=== PATIENT | female | born 1950 | race Caucasian/White ===

== ENCOUNTER 2018-07-06 13:48 | Outpatient (CLI) | payer MEDICARE ==
--- NOTE | 2018-07-06 15:26 | MMO ---
Bilateral MAMMO Bilat Screen [facility]. CLINICAL HISTORY: Patient is 67 years old and is seen for screening. The patient has no family history of breast cancer. The patient has no personal history of cancer. VIEWS: The views performed were: bilateral craniocaudal with tomosynthesis and bilateral mediolateral oblique with tomosynthesis. FILMS COMPARED: The present examination has been compared to prior imaging studies performed at [facility] on 05/05/2005, 05/24/2005 and 06/17/2015. MAMMOGRAM FINDINGS: There are scattered fibroglandular densities. There are no suspicious masses, suspicious calcifications, or new areas of architectural distortion. IMPRESSION: THERE IS NO MAMMOGRAPHIC EVIDENCE OF MALIGNANCY. A ROUTINE FOLLOW-UP MAMMOGRAM IN 1 YEAR IS RECOMMENDED. THE RESULTS OF THIS EXAM WERE SENT TO THE PATIENT. ACR BI-RADS Category 1 - Negative MAMMOGRAPHY NOTE: 1. A negative mammogram report should not delay a biopsy if a dominant of clinically suspicious mass is present. 2. Approximately 10% to 15% of breast cancers are not detected by mammography. 3. Adenosis and dense breasts may obscure an underlying neoplasm.
== END 2018-07-06 13:49 | disposition home or self-care (01) ==
LOC: BICMAMMO 13:48
PROVIDERS: ATTEND Family Medicine
DX: Z12.31 Encounter for screening mammogram for malignant neoplasm of breast (principal)
CPT/HCPCS: 77063; 77067

== ENCOUNTER 2018-09-22 07:33 | Outpatient (CLI) | payer MEDICARE ==
--- NOTE | 2018-09-22 09:05 | CT ---
CT ABDOMEN AND PELVIS WITH AND WITHOUT IV CONTRAST 09/22/2018 CLINICAL INFORMATION: Asymptomatic microscopic hematuria. Back pain. COMPARISON: None. Technique: Multiple contiguous axial CT images are obtained through the abdomen and pelvis with and without IV c ontrast. Coronal reformatted images are provided. FINDINGS: Lower Chest: Dependent bibasilar atelectasis. Vessels: Vascular calcifications in the abdominal aorta. Abdomen: Portal vein:Patent Gallbladder: Within normal limits for CT imaging. Liver: There are scattered subcentimeter low-density lesions within each lobe of the liver which are difficult to further characterize but likely reflective of hepatic cysts. Cystic metastatic lesions cannot be entirely excluded but are less favored.. Spleen: within normal limits. Pancreas: within normal limits. Adrenals: within normal limits. Kidneys: Subcentimeter too small to characterize hypodense lesions are seen in each kidney. There are bilateral parapelvic renal cysts present. No enhancing renal mass is identified. No renal or ureteral calculi are seen bilaterally, and there is no evidence of hydronephrosis. There is mild dist ortion of each renal collecting system due to the parapelvic renal cysts, but no definitive filling defect is seen within the renal collecting systems or ureters. Bowel: Small hiatal hernia is present. Loops of small bowel are normal in caliber. There is colonic d iverticulosis involving the sigmoid colon. Appendix: Not visualized. Peritoneum: No ascites or free air; no fluid collection. Mesentery and Retroperitoneum: No enlarged mesenteric or retroperitoneal lymph nodes. Abdominal Wall: within normal limits. Pelvis: Reproductive Organs: No pelvic masses. Pelvis within normal limits. Bladder: Partially distended but otherwise grossly within normal limits. Bones: There is pseudoarticulation of the right lateral mass of L5 with S1. Mild degenerative changes are seen at the lumbosacral junction. IMPRESSION: 1. No renal or ureteral calculi are seen bilaterally, and there is no hydronephrosis or enhancing janice al mass identified. 2. Subcentimeter too small to characterize hypodense lesions in each kidney likely reflective of smal l cysts. Bilateral parapelvic renal cysts are seen. 3. Subcentimeter too small to characterize hypodense lesions within each lobe of the liver statistica lly favored to represent small hepatic cysts. 4. Small hiatal hernia. 5. Colonic diverticulosis.
[2018-09-22] MEDS ORDERED: ISOVUE-370 76%-LOCM 1 ML ONE (11:42)
== END 2018-09-22 07:34 | disposition home or self-care (01) ==
LOC: BICCT 07:33
PROVIDERS: ATTEND Urology
DX: R31.21 Asymptomatic microscopic hematuria (principal); N28.89 Other specified disorders of kidney and ureter; K76.9 Liver disease, unspecified; K44.9 Diaphragmatic hernia without obstruction or gangrene; K57.30 Diverticulosis of large intestine without perforation or abscess without bleeding
CPT/HCPCS: 74178; 82565; Q9966

== ENCOUNTER 2019-01-09 05:59 | Day surgery (SDC) | payer MEDICARE ==
[2019-01-08 17:12] VITALS: BMI 24.0
[2019-01-08 18:16] LABS: Hemoglobin 12.8 g/dL (12.0-16.0); Mean Corpuscular HGB CONC 31.1 g/dL (32.0-36.0); Mean Corpuscular Hemoglobin 26.3 pg (27.0-31.0); Mean Corpuscular Volume 84.5 fL (78.0-98.0); Mean Platelet Volume 8.5 fL (7.4-10.4); Platelet Count 241 thou/uL (130-400); RBC Distribution Width 13.5 % (11.5-14.5); Red Blood Cell (RBC) Count 4.88 mill/uL (4.20-5.40); White Blood Cell (WBC) Count 6.2 thou/uL (4.8-10.8)
--- NOTE | 2019-01-09 01:13 | HP ---
ANTICIPATED DATE OF SURGERY: She is scheduled for surgery on January 09. HISTORY OF PRESENT ILLNESS: Ms. Brumfield is a 68-year-old white female, G11, P8, A3, who has had significant pelvic prolapse. She had symptoms of something bulging and falling out her vagina that has progressively worsened. She is originally seen for this back in July 2018 and was offered a pessary there due to concerns for time off due to a surgical approach. She declined and now she is desiring definitive surgical therapy. PAST MEDICAL HISTORY: Negative. PAST SURGICAL HISTORY: Negative. ALLERGIES: SHE HAS NO KNOWN DRUG ALLERGIES. FAMILY HISTORY: Significant for prostate cancer in her father at age 88, heart disease in her father, and hypertension. SOCIAL HISTORY: She is a nonsmoker. No excessive alcohol use. She is . OB HISTORY: She had eight spontaneous vaginal deliveries in the past. CURRENT MEDICATIONS: 1. Multivitamin. 2. Vitamin D3 of 2000 units daily. PHYSICAL EXAMINATION: VITAL SIGNS: Her blood pressure is 114/70, weight 144, height 5 feet 4 inches, BMI of 24.7, pulse 79 and regular, and respiratory rate 18. HEENT: Within normal limits. CHEST: Clear to auscultation. HEART: Regular rate and rhythm. S1 and S2 heart sounds. No murmurs, rubs, or gallops. ABDOMEN: Soft, nontender, nondistended with no palpable masses. PELVIS: Vulva and vagina had no lesions. She has significant procidentia with the cervix protruding past the vaginal introitus 3 cm. She also has concomitant cystocele that is grade 3 to 4 and rectocele, grade 3. ASSESSMENT: This is a 68-year-old white female, G11, P8, A3 with uterine procidentia/cystocele/rectocele. PLAN: Plan is to proceed with robotic total laparoscopic hysterectomy with bilateral salpingo-oophorectomy with uterosacral vaginal vault suspension, followed by anterior and posterior repair with Advantage Fit TVT with cystoscopy. Risks and benefits of the procedure have been discussed in detail. She is scheduled for surgery on 01/09/2019. Job ID: [id number]
[2019-01-09] MEDS ORDERED: Famotidine/PF 20 mg/2ml Vial ONE (06:06)
[2019-01-09] MEDS ORDERED: Gabapentin 300 MG CAP ONE (06:06)
[2019-01-09] MEDS ORDERED: CeleCOXIB 100 MG CAP ONE (06:06)
[2019-01-09] MEDS ORDERED: HYDROmorphone 2 MG/ML VIAL ONE (06:56)
[2019-01-09] MEDS ORDERED: Lidocaine 1% w/Epinephrine 1:100K 20 ML VIAL ONE (07:17)
[2019-01-09] MEDS ORDERED: Bupivacaine HCl 0.5%/Epinephrine 1:200,000/PF 30 ml Vial ONE (07:17)
[2019-01-09] MEDS ORDERED: SUGAMMADEX SODIUM 200 MG/2 ML VIAL ONE (09:48)
[2019-01-09] MEDS ORDERED: diphenhydrAMINE 25 MG CAP PO PRN (10:42)
[2019-01-09] MEDS ORDERED: Morphine 4 MG/ML VIAL SLOW IVP PRN (10:42)
[2019-01-09] MEDS ORDERED: Zolpidem Tartrate 5 MG TAB PO PRN (10:42)
[2019-01-09] MEDS ORDERED: Bisacodyl 10 MG SUPP PR PRN (10:42)
[2019-01-09] MEDS ORDERED: Promethazine HCl 25 MG/ML VIAL IM PRN (10:42)
[2019-01-09] MEDS ORDERED: Simethicone Chewable 80 MG TAB PO PRN (10:42)
[2019-01-09] MEDS ORDERED: traMADol HCl 50 MG TAB PO PRN ×2 (10:42)
[2019-01-09] MEDS ORDERED: Ondansetron PF 4 MG/2 ML Vial IVP PRN (10:42)
[2019-01-09] MEDS ORDERED: Dexamethasone 20 MG/5 ML VIAL ONE (10:50)
[2019-01-09] MEDS ORDERED: Rocuronium Bromide 10 MG/ML (10ML VIAL) ONE (10:50)
[2019-01-09] MEDS ORDERED: Lidocaine 1% PF 5 ML VIAL ONE (10:50)
[2019-01-09] MEDS ORDERED: Glycopyrrolate 0.2 MG/ML 5 ML SYRINGE ONE (10:50)
[2019-01-09] MEDS ORDERED: ePHEDrine/0.9% NaCl/PF SYRINGE 50 mg/10 ml ONE (10:50)
[2019-01-09] MEDS ORDERED: PROPOFOL 200 MG/20 ML VIAL ONE (10:50)
[2019-01-09] MEDS ORDERED: Ondansetron PF 4 MG/2 ML Vial ONE (10:50)
--- NOTE | 2019-01-09 14:32 | OP ---
DATE OF PROCEDURE: 01/09/2019 PREOPERATIVE DIAGNOSES: A 68-year-old white female G11, P8, A3 with uterine procidentia, grade 3 cystocele, grade 2 rectocele, and genuine stress incontinence. POSTOPERATIVE DIAGNOSES: A 68-year-old white female G11, P8, A3 with uterine procidentia, grade 3 cystocele, grade 2 rectocele, and genuine stress incontinence. PROCEDURES PERFORMED: 1. Robotic total laparoscopic hysterectomy and bilateral salpingo-oophorectomy. 2. Uterosacral vaginal vault suspension. 3. Anterior and posterior repair. 4. Advantage Fit TVT with cystoscopy. ASSISTANCE SURGEON: Riana Pena PA-C ANESTHESIA: General endotracheal. ESTIMATED BLOOD LOSS: 50 mL. COMPLICATIONS: None. COUNTS: Correct x2. ANTIBIOTICS: 2 g Ancef. PATHOLOGY: Uterus, cervix, bilateral fallopian tubes and ovaries. FINDINGS: 1. Normal-appearing postmenopausal uterus and fallopian tubes and ovaries with uterine procidentia with the cervix extending over 3 cm past the vaginal introitus. 2. Cystoscopy of bladder showed bladder to be watertight with no evidence of injury with trocar placement of the TVT device or previous insult. Bilateral ureteral orifices with efflux of urine noted postprocedure evaluation. DISPOSITION: Recovery room, stable. DESCRIPTION OF PROCEDURE: The patient previously received informed consent in regard to surgery. She was taken back to the operating room, where she received a general endotracheal anesthetic agent without complications. She was placed in the dorsal lithotomy position with use of Soren stirrups and prepped in usual fashion. The cervix was noted to be extending 3 cm past the vaginal introitus. It was grasped with a single-tooth tenaculum. It was sounded to 9 cm and a size 8 cm YAJAIRA uterine manipulator with a 3.5 cm cup was placed in usual fashion, placing the uterus within the vaginal vault. Carballo catheter had also been placed during this time. Attention was then turned to the abdomen for perspective trocar sites were infiltrated with 0.5% Marcaine with epinephrine. A 12 mm supraumbilical incision was made. Veress needle was then entered into the peritoneal cavity with the patient's pressure was noted to be less than 5 mm. Abdomen was insufflated the patient's pressure of 15 approximately 4.5 L of carbon dioxide gas. Veress needle was removed and a 12 mm trocar was placed. So, robotic laparoscope was introduced through the trocar sleeve confirming proper entry. The patient was in Trendelenburg position then and with additional 8 mm bilateral lower quadrant ports were placed along with the right upper quadrant state tested nursing assistant port. Robot was then docked in usual fashion and I then broke scrub and proceeded to carry out the procedure from the operative console while my assistants remained at the bedside. The uterus was elevated by my state tested nursing assistant into the abdomen and put on stretch, which enabled us to identify the [place] uterosacral ligaments. The courses of each ureters were also visualized, which were noted to be well lateral to the uterosacral ligaments. With the use of the monopolar scissors, then bipolar fenestrated cautery, the left uterosacral ligament was grasped approximately 4 cm more caudally from the insertion of the uterus. It was elevated, then underneath the peritoneum, underneath the uterosacral ligament was then opened and the area was dissected, creating a window for further usage for this suspension after the hysterectomy procedure. The retroperitoneum lateral to the uterosacral ligament was also opened and dissected a window, which freed the ureter more laterally from the uterosacral ligament. This was repeated in likewise fashion on the right uterosacral ligament. Then, I re-grasped the left fallopian tube. The left IP ligament was then cauterized and coagulated and transected and serial coagulation and transection of the broad ligament hugging close to uterine specimen was carried down to the left round ligament was reached. It was coagulated and transected. The anterior leaf of the broad ligament was entered and the anterior leaf of the vesical peritoneum and the reflection was incised in a layering technique dissecting the bladder safely past the cervical vaginal angle. The uterine vessels were skeletonized and they were coagulated in the internal cervical os region. This was repeated on the right side in similar fashion with the right IP ligament was coagulated and transected. Serial coagulation of broad ligament hugging close to the uterus was carried down to the right round ligament was reached. It was coagulated and transected. The anterior leaf of the broad ligament again was entered. The vesicouterine peritoneum was incised in layering technique. Again, dropping it safely, the bladder safely past the cervical vaginal margin. The vessels were continued to be skeletonized and coagulated the internal cervical os region. The bladder was distended at this time to confirm location and it was noted to be well past the cervical vaginal margin. The anterior colpotomy was then made with monopolar scissors. It was carried from 12 to 3 and 12 to 9 o'clock and completed from 6 to 9 and 6 to 3 o'clock. The specimen was delivered in the vagina. The monopolar scissors were exchanged with the Fredrick needle haulpak driver and then, I grasped the vaginal cuff. Any areas of oozing or bleeding were made hemostatic with bipolar fenestrated cautery. The vaginal cuff was then closed with a Stratafix suture starting the right angle, therein through to the left angle and then back towards the midline. The excess suture and needle were then removed by my state tested nursing assistant in the right upper quadrant port. #1 Ethibond sutures were then brought into the surgical field. We then checked the Ethibond suture and did several two throws through the vaginal cuff on the left vaginal angle and then towards the midline and then, lassoed this around the left uterosacral ligament. This was tied up while my state tested nursing assistant from below held the vaginal vault on stretch toward the cephalad. This helped plicated and then support the vaginal vault. This was again carried out again with 0 Ethibond suture on the right side to the right vaginal angle and the right middle portion of the vaginal cuff and then sutured and tied down to the right uterosacral ligament with clear previous window had been created. The excess suture and needle were then again removed through the right upper quadrant point. An additional suture was placed, 0 Ethibond through the midportion of the vaginal cuff anteriorly and back through posteriorly even then brought through the two uterus sacral ligaments were close to the vaginal cuff line plicating these together for additional support. Excess suture and needle were then removed. We then irrigated the pelvis and hemostasis on the pedicle sites were confirmed. Bilateral ureteral peristalsis were visualized and ureters appeared well lateral to the plicated portion of the uterosacral ligament vault suspension. The robot was then undocked. The trocar sites were removed. A deep stitch of 0 Vicryl was placed in the fascia of the umbilicus and a [id number] stitch fashion securing hemostasis and closure of the fascia. The remainder of the trocar sites were closed with 4-0 Monocryl subcuticular fashion and Dermabond. We then proceeded to carry out the vaginal portion of the procedures. The patient was placed in a more exaggerated dorsal lithotomy position. Carballo catheter was draining clear urine. A weighted speculum was placed in the vagina. The cystocele was noted and two Allis clamps were placed in the anterior vagina. Anterior portion of the vaginal mucosa was opened just over the midportion of the cystocele. The cystocele was reduced and the endopelvic fascia was then plicated with 2-0 Vicryl sutures in a deiauu-pu-frwqo stitch fashion. The mucosa of the anterior vagina of the cystocele was then closed with interrupted [id number] stitches securing hemostasis. We then carried out the TVT procedure, where the markings were made just above the symphysis pubis first in the midline, where the urethra was located and then, 2 cm lateral on the right and left side. These were marked. Hydrodissection with approximately 60 mL of sterile saline was placed with the needle in the suprapubic area. We then located the midportion of the urethra by palpating the Carballo bulb. Allis clamps superiorly and inferiorly to this was made after infiltration of this mucosa with 1% lidocaine with epinephrine. A 1.5 cm midline vertical incision of the vaginal mucosa of the mid urethra was made. The edges were grasped with Allis clamps. Metzenbaum scissors were utilized to tunnel submucosally in the junction of inferior pubic ramus and symphysis pubis to perforate into the space of Retzius bilaterally with the Metzenbaum scissors. The Advantage Fit TVT trocar was then assembled along with the mesh tape and the trocar was then placed in the dissected tunnel on the patient's left side. After the legs had been dropped in the proper position level to each envella. The Advantage Fit TVT trocar was then guided under the symphysis pubis and the handle was dropped towards the floor angling into the envella on the previously marked lateral suprapubic spot passing the trocar through the skin and then grasping the plastic portion of the mesh with a Lucy clamp. The trocar was backed out. The mesh was then placed on the right side in likewise fashion in the patient. The two plastic portions of the mesh were held stable with a Lucy clamp. At this time, the Carballo guidewire was taken out of the bladder, while I had been placed a centimeter at this time deviating and away from each trocar placement site. A 30-degree cystoscope was then placed through the bladder and the bladder was distended. There was no evidence of any trocar placement or mesh placement within the bladder. Bilateral ureteral orifices were visualized with efflux of the urine also noted. We then tightening the TVT tape over the mid urethra. My state tested nursing assistant pulled these up after the protective plastic covering had been clipped and removed. It was tightened up against the Cadet scissor. Once the appropriate tautness was confirmed, the mesh was trimmed at the skin line of the symphysis pubis filed on the side. The Cadet scissor was removed. The vaginal mucosa overlying the mid urethra and mesh was closed with interrupted vxwvqa-[id number] stitches of 0 Vicryl securing hemostasis. We recystoscoped the patient at this time with a 70-degree scope and again bilateral ureteral orifices were noted to be effluxing urine. Attention was then turned to the posterior repair, where the angle of the vagina and the introitus at the 4 and 9 o'clock position were grasped with Allis clamps. The posterior vaginal mucosa was infiltrated with 1% lidocaine with epinephrine. A vertical midline incision was made in the vaginal mucosa to the cuff line. The edges were grasped with hemostats and the rectocele defect was dissected both sharply and bluntly reducing in its fashion. The endopelvic fascia then was replicated in the midline with interrupted jblqvh-[id number] sutures of 0 Vicryl, reducing and repairing the rectocele. The additional vaginal mucosa was then closed with 0 Vicryl suture incorporating some of the endopelvic fascia to rid the space. Once this was completed, a rectal exam was performed. There was no evidence of inadvertent suture placement in the rectal mucosa. The hemostasis along all the suture lines was confirmed. A moistened Kerlix packing was placed and then the patient was awakened from anesthesia and transferred to recovery room in stable condition. Job ID: [id number]
[2019-01-09] MEDS: Acetaminophen 1,000 MG in Premix Bag 1 BAG IVPB SCH ×2 (16:28→22:32)
[2019-01-09] MEDS: Ketorolac Tromethamine 30 MG/ML VIAL IVP SCH (22:33)
[2019-01-10 04:36] LABS: Hemoglobin 11.7 g/dL (12.0-16.0); Mean Corpuscular HGB CONC 32.4 g/dL (32.0-36.0); Mean Corpuscular Hemoglobin 27.5 pg (27.0-31.0); Mean Corpuscular Volume 84.9 fL (78.0-98.0); Mean Platelet Volume 8.6 fL (7.4-10.4); Platelet Count 205 thou/uL (130-400); RBC Distribution Width 13.4 % (11.5-14.5); Red Blood Cell (RBC) Count 4.24 mill/uL (4.20-5.40); White Blood Cell (WBC) Count 9.8 thou/uL (4.8-10.8)
[2019-01-10] MEDS: Ketorolac Tromethamine 30 MG/ML VIAL IVP SCH ×2 (05:47→05:48)
[2019-01-10] MEDS: Acetaminophen 1,000 MG in Premix Bag 1 BAG IVPB SCH ×2 (05:48→09:21)
[2019-01-10] MEDS: Ibuprofen 600 MG TAB PO SCH ×3 (05:53→18:50)
[2019-01-10] MEDS ORDERED: Docusate Calcium (SURFAK) 240 MG CAP PO SCH (09:00)
[2019-01-10] MEDS ORDERED: Prevnar 13-Val Conj/PF 0.5 ML SYRINGE IM ONE (09:00)
[2019-01-10] MEDS ORDERED: FLU VACC TS2019-20(65YR UP)/PF 180 MCG/0.5 ML SYRINGE IM ONE (09:00)
[2019-01-10 11:28] VITALS: BP 104/55; TEMP 97.8
--- NOTE | 2019-01-10 12:10 | PDOC.EVN ---
Event Note - Event Note Event Note: Kerlix packing placed this morning for bleeding removed after 4 hours. No active bleeding noted. Floseel placed for added extra hemostatic support.. Begin voiding trials now...
--- NOTE | 2019-01-11 01:03 | DIS ---
DATE OF ADMISSION: 01/09/2019 DATE OF DISCHARGE: 01/10/2019 DIAGNOSES: 1. Uterine procidentia. 2. Cystocele, rectocele. 3. Genuine stress incontinence. PROCEDURES PERFORMED: Robotic total laparoscopic hysterectomy and bilateral salpingo-oophorectomy with uterosacral vaginal vault suspension followed by anterior and posterior repair with Advantage Fit TVT with cystoscopy. SUMMARY OF HOSPITAL COURSE: Ms. Brumfield is a 68-year-old white female, G11, P8, A3, who had significant pelvic prolapse issues. She underwent surgical repair on 01/09 with the previously mentioned procedures. Postoperatively, the patient did well. She did have some vaginal bleeding on removal of the vaginal packing postop day #1. This was felt to be caused by removing of some of the scab layer of the vaginal mucosa and this was remedied by repacking with moistened Kerlix for 4 hours and removing this and with added hemostasis application of one syringe of FloSeal. No further vaginal bleeding ensued. Her hematocrit was 36% with stable vital signs. She began voiding trials the afternoon of postop day #1 and her voids were 100 to 150 mL with anywhere from 300-400 postvoid residuals. She had several voids with these findings and therefore, we decided to replace the Carballo catheter in the evening of postop day #1. She was given instructions on management of the Carballo catheter and plan is to allow for postoperative swelling to reside and also her bladder function to recover due to her chronic prolapse issues and will follow up with removal of the Carballo catheter in my office postop day #5, which would be approximately January 16. She was having adequate pain control with ibuprofen and Tylenol, and elects to continue this at home. Pathology is pending at the time of this dictation. Job ID: [id number]
== END 2019-01-10 19:51 | disposition home or self-care (01) ==
LOC: SDC 05:59 → 3SE 14:00 → SDC 01-10 19:51
PROVIDERS: ATTEND Obstetrics & Gynecology
DX: N81.9 Female genital prolapse, unspecified (principal); D64.9 Anemia, unspecified
CPT/HCPCS: 57260; 57288; 58571; 85027 ×2; 86850; 86900; 86901; 88307; C1781; 36415; J0131; J0670; J0690; J1100; J1170; J1885; J2001; J2405; J2704; S0028

== ENCOUNTER 2019-11-26 09:46 | Outpatient (CLI) | payer MEDICARE ==
--- NOTE | 2019-11-26 11:02 | MRI ---
MRI lumbar spine noncontrast HISTORY: Low back pain with left leg radiculopathy. FINDINGS: The conus medullaris has a normal appearance. Vertebral body heights and alignment are main tained. Images including the retroperitoneum show parapelvic cysts of each kidney. T12-L1: Mild osteophytosis. Central canal and neural foramina are patent. L1-2: Desiccation of the disc. Posterior disc protrusion is greater to the right of midline, with eff acement of the right ventral aspect of the thecal sac. Mild osteophytosis of the vertebral bodies and facets. Neural foramina are patent. L2-3: Desiccation of the disc. Mild osteophytosis of the facets. Central canal and neural foramina ar e patent. L3-4: Desiccation of the disc. Mild osteophytosis of the facets. Central canal and neural foramina ar e patent. L4-5: Desiccation of the disc. Mild disc space narrowing. Diffuse posterior disc bulge with small to moderate left posterolateral protrusion and inferior extension. Resultant compression of the left L5 nerve root within the lateral recess. Encroachment upon the left neural foramen with moderate sten osis. Moderate right foraminal stenosis. Thecal sac is patent. L5-S1: Osteophytosis of the facets. Mild bilateral foraminal stenoses. Central canal is patent. IMPRESSION : Left leg radiculopathy may be explained by left posterolateral protrusion of the L4-5 disc with compr ession of the left L5 nerve root in the lateral recess. Other degenerative changes of the lumbar spine as detailed above.
== END 2019-11-26 09:47 | disposition home or self-care (01) ==
LOC: SCSMRI 09:46
PROVIDERS: ATTEND Orthopaedic Surgery
DX: M54.42 Lumbago with sciatica, left side (principal); M51.16 Intervertebral disc disorders with radiculopathy, lumbar region; M47.26 Other spondylosis with radiculopathy, lumbar region
CPT/HCPCS: 72148